=== PATIENT | male | born 1945 | race Caucasian/White ===

== ENCOUNTER 2017-06-02 09:32 | Day surgery (SDC) | payer OTHER ==
[~2017-06-02 09:32] MED LIST: CYCLOPENTOLATE 1% OPHTH DROPS 2 ML ONE; KETOROLAC 0.45% OPHTH DROPS ONE; PHENYLEPHRINE 2.5% OPHTH 2 ML DROPS ONE; PROPARACAINE 0.5% OPHTH DROPS 15 ML ONE
[2017-06-02] MEDS ORDERED: PROPARACAINE 0.5% OPHTH DROPS 15 ML OPTH ONE ×3 (10:45→11:41)
[2017-06-02] MEDS ORDERED: CYCLOPENTOLATE 1% OPHTH DROPS 2 ML OPTH ONE (10:45)
[2017-06-02] MEDS ORDERED: KETOROLAC 0.45% OPHTH DROPS OPTH ONE (10:45)
[2017-06-02] MEDS ORDERED: PHENYLEPHRINE 2.5% OPHTH 2 ML DROPS OPTH ONE (10:45)
[2017-06-02] MEDS ORDERED: LACTATED RINGERS 500 ML IV ONE (10:51)
[2017-06-02] MEDS ORDERED: MIDAZOLAM 2 MG/2 ML VIAL IVP ONE (11:20)
[2017-06-02] MEDS ORDERED: EPINEPHrine 1 MG/ML AMP IVP ONE ×2 (11:32→11:41)
[2017-06-02] MEDS ORDERED: BRIMONIDINE 0.2% OPHTH DROPS 5 ML OPTH ONE ×2 (11:32→11:41)
[2017-06-02] MEDS ORDERED: BSS/LIDOCAINE/EPINEPHRINE 1 ML SYRINGE IO ONE ×3 (11:33→11:41)
[2017-06-02] MEDS ORDERED: TIMOLOL 0.5% OPHTH DROPS OPTH ONE ×2 (11:33→11:41)
[2017-06-02] MEDS ORDERED: CHONDR SULF/HYALURONATE SYRINGE IO ONE ×2 (11:33→11:41)
[2017-06-02] MEDS ORDERED: TRIAMCIN/MOXIFLOX/VANCO 1 ML VIAL IO ONE ×3 (11:34→11:41)
--- NOTE | 2017-06-02 12:18 | OPERATIVE REPORT ---
DATE OF SURGERY: 06/02/2017 00:00:00 PREOPERATIVE DIAGNOSIS: Visually significant cataract, right eye. This was his first cataract surgery. POSTOPERATIVE DIAGNOSIS: Visually significant cataract, right eye. This was his first cataract surgery. NAME OF PROCEDURE: Phacoemulsification posterior chamber intraocular lens implant, right eye. SURGEON: Tyler Funk MD. ANESTHESIA: Monitored anesthesia care. COMPLICATIONS: None. OPERATIVE INDICATIONS: This is a 72-year-old man with progressive vision loss in the right eye due to 1+ nuclear sclerotic and 2+ anterior subcapsular cataract. Best corrected visual acuity was 20/70 with glare to 20/400 in the right eye. Indications for surgery were overall decrease in vision, difficulty seeing words on a computer screen, difficulty reading, difficulty seeing words, close captions, or games scores on TV, difficulty driving in low light or at night, difficulty driving at night because of head lights from other vehicles, difficulty with glare or bright lights in any situation, difficulty tracking a golf ball, and decreased acuity with firearms. He was consented at length concerning the risks and benefits of cataract surgery, after which he expressed a desire to proceed with surgery. OPERATIVE PROCEDURE: The patient was taken into OR #2 and placed under monitored anesthesia care. A surgical time-out was conducted confirming the correct patient, correct procedure, and correct surgical site. He was given topical anesthesia and then prepped and draped in the usual sterile fashion. The eye was entered at the 12 and 9 o'clock positions. Intracameral Shugarcaine was injected into the anterior chamber followed by Viscoat. A continuous tear curvilinear capsulorrhexis was performed. The nucleus was hydrodissected and phacoemulsified. The cortex was evacuated using automated infusion aspiration. Provisc was injected into the capsular bag and a 16.0 diopter intraocular lens was inserted into the bag. Approximately 0.9 mL of a mixture of triamcinolone, moxifloxacin, and vancomycin was injected subconjunctivally in the superior quadrant for infection and inflammation prophylaxis. I/A was used to evacuate the viscoelastic materials. The eye was inflated to a physiologic pressure using balanced salt solution and found to be watertight. The patient was taken from the operating room in good condition and given postoperative instructions. JOB #: [id number] EXT JOB #:[id number] NADER
[2017-06-02 12:25] VITALS: BP 113/58
== END 2017-06-02 09:33 | disposition home or self-care (01) ==
LOC: SDS 09:32
PROVIDERS: ATTEND Ophthalmology
PROC: 08RJ3JZ Replacement of Right Lens with Synthetic Substitute, Percutaneous Approach (ICD-10-PCS; principal; 2017-06-02 11:00)
DX: H25.031 Anterior subcapsular polar age-related cataract, right eye (principal)
CPT/HCPCS: 66984; A9270; J3490; V2632

== ENCOUNTER 2017-07-07 07:24 | Day surgery (SDC) | payer OTHER ==
[~2017-07-07 07:24] MED LIST changes: +BRIMONIDINE 0.2% OPHTH DROPS 5 ML ONE; -CYCLOPENTOLATE 1% OPHTH DROPS 2 ML ONE; -KETOROLAC 0.45% OPHTH DROPS ONE; -PHENYLEPHRINE 2.5% OPHTH 2 ML DROPS ONE; -PROPARACAINE 0.5% OPHTH DROPS 15 ML ONE; +TIMOLOL 0.5% OPHTH DROPS ONE
[2017-07-07] MEDS ORDERED: PHENYLEPHRINE 2.5% OPHTH 2 ML DROPS ONE (07:35)
[2017-07-07] MEDS ORDERED: KETOROLAC 0.45% OPHTH DROPS ONE (07:35)
[2017-07-07] MEDS ORDERED: TIMOLOL 0.5% OPHTH DROPS ONE (07:35)
[2017-07-07] MEDS ORDERED: CYCLOPENTOLATE 1% OPHTH DROPS 2 ML ONE (07:36)
[2017-07-07] MEDS ORDERED: PROPARACAINE 0.5% OPHTH DROPS 15 ML ONE (07:36)
[2017-07-07] MEDS ORDERED: LACTATED RINGERS 500 ML IV ONE (08:07)
[2017-07-07] MEDS ORDERED: KETOROLAC 0.45% OPHTH DROPS OPTH ONE (08:20)
[2017-07-07] MEDS ORDERED: PHENYLEPHRINE 2.5% OPHTH 2 ML DROPS OPTH ONE (08:20)
[2017-07-07] MEDS ORDERED: CYCLOPENTOLATE 1% OPHTH DROPS 2 ML OPTH ONE (08:20)
[2017-07-07] MEDS ORDERED: PROPARACAINE 0.5% OPHTH DROPS 15 ML OPTH ONE ×2 (08:20→09:16)
[2017-07-07] MEDS ORDERED: MIDAZOLAM 2 MG/2 ML VIAL IVP ONE (09:05)
[2017-07-07] MEDS ORDERED: TIMOLOL 0.5% OPHTH DROPS OPTH ONE (09:16)
[2017-07-07] MEDS ORDERED: BRIMONIDINE 0.2% OPHTH DROPS 5 ML OPTH ONE (09:16)
[2017-07-07] MEDS ORDERED: EPINEPHrine 1 MG/ML AMP IVP ONE (09:16)
[2017-07-07] MEDS ORDERED: BSS/LIDOCAINE/EPINEPHRINE 1 ML SYRINGE IO ONE (09:16)
[2017-07-07] MEDS ORDERED: CHONDR SULF/HYALURONATE SYRINGE IO ONE (09:16)
[2017-07-07] MEDS ORDERED: TRIAMCIN/MOXIFLOX/VANCO 1 ML VIAL IO ONE (09:16)
[2017-07-07 09:28] VITALS: BP 120/77
--- NOTE | 2017-07-07 11:37 | OPERATIVE REPORT ---
DATE OF SURGERY: 07/07/2017 00:00:00 PREOPERATIVE DIAGNOSIS: Visually significant cataract, left eye. Cataract surgery was performed on th e right eye on 06/02/2017. POSTOPERATIVE DIAGNOSIS: Visually significant cataract, left eye. Cataract surgery was performed on t he right eye on 06/02/2017. NAME OF PROCEDURE: Phacoemulsification posterior chamber intraocular lens implant, left eye. SURGEON: Tyler Funk MD. ANESTHESIA: Monitored anesthesia care. COMPLICATIONS: None. OPERATIVE INDICATIONS: This is a 72-year-old man with progressive vision loss in the left eye due to 1+ nuclear sclerotic cataract. Best corrected visual acuity was 20/40 with glare to 20/80 in the left eye. Indications for surgery were difficulty seeing words on a computer screen, difficulty reading, difficulty seeing words or game scores on TV, and difficulty seeing street signs. He was consented at length concerning the risks and benefits of cataract surgery, after which he expressed a desire to p roceed with surgery. OPERATIVE PROCEDURE: The patient was taken into OR #2 and placed under monitored anesthesia care. A s urgical time-out was conducted confirming the correct patient, correct procedure and correct surgical site. He was given topical anesthesia and then prepped and draped in the usual sterile fashion. The eye was entered at the 6- and 3 o'clock positions. Intracameral Shugarcaine was injected into the ant erior chamber followed by Viscoat. A continuous tear curvilinear capsulorrhexis was performed. The nu cleus was hydrodissected and phacoemulsified. The cortex was evacuated using automated infusion aspir ation. Provisc was injected into the capsular bag and a 17.5 diopter intraocular lens inserted into t he bag. Approximately 0.7 mm of a mixture of triamcinolone, moxifloxacin, and vancomycin was injected subconjunctivally in the superior quadrant for infection and inflammation prophylaxis. I/A was used to evacuate the viscoelastic materials. The eye was inflated to physiologic pressure using balanced s alt solution and found to be watertight. The patient was taken from the operating room in good condit ion and given postoperative instructions. JOB #: [id number] EXT JOB #:[id number]
== END 2017-07-07 07:25 | disposition home or self-care (01) ==
LOC: SDS 07:24
PROVIDERS: ATTEND Ophthalmology
PROC: 08RK3JZ Replacement of Left Lens with Synthetic Substitute, Percutaneous Approach (ICD-10-PCS; principal; 2017-07-07 09:00)
DX: H25.12 Age-related nuclear cataract, left eye (principal)
CPT/HCPCS: 66984; A9270; J3490; V2632